=== PATIENT | female | born 1990 | race American Indian/Alaskan Native ===

== ENCOUNTER 2018-12-27 18:32 | Emergency (ER) | payer SELFPAY ==
--- NOTE | 2018-12-27 19:11 | Emergency Department Report ---
Chief Complaint: Anxiety Stated Complaint: MENTALLY EXHAUSTED Time Seen by Provider: 12/27/18 19:07 - HPI History of Present Illness: pt presents with a ARELLANO, feels tired, upset, doesn't feel like doing anything, irritability increased stress in her life no SI/HI, no hallucinations hx of anxiety, is not on any medication no PCP hx of anemia transfusion in 2007 only medication is multivamin non smoker, no drinking, no drug use will send to the [facility] for further evaluation MSE screening note: Focused history and physical exam performed. ED Disposition for MSE Condition: Stable
[2018-12-27 19:17] VITALS: BP 110/76
== END 2018-12-27 22:05 | disposition left against medical advice (07) ==
LOC: ED 18:32
DX: F99 Mental disorder, not otherwise specified (principal); Z53.21 Procedure and treatment not carried out due to patient leaving prior to being seen by health care provider